=== PATIENT | male | born 1955 | race Caucasian/White ===

== ENCOUNTER 2025-06-18 07:38 | Day surgery (SDC) | payer MEDICARE ==
[2025-06-18] MEDS ORDERED: fentaNYL 50 MCG/ML SDV ONE (08:14)
[2025-06-18] MEDS ORDERED: Propofol 200 MG/20 ML SDV ONE (08:14)
[2025-06-18] MEDS ORDERED: Midazolam 1 MG/ML 2 ML SDV ONE (08:14)
[2025-06-18] MEDS: Lactated Ringers 1,000 ML IV SCH (08:22)
[2025-06-18 10:37] VITALS: BP 129/76; PULSE 60
== END 2025-06-18 11:08 | disposition home or self-care (01) ==
LOC: JP.SDS 07:38
PROVIDERS: ATTEND Surgery
DX: Z12.11 Encounter for screening for malignant neoplasm of colon (principal); K57.30 Diverticulosis of large intestine without perforation or abscess without bleeding; Z86.0100 Personal history of colon polyps, unspecified; Z79.899 Other long term (current) drug therapy
CPT/HCPCS: J2250; J2704; J3010; J7120